=== PATIENT | female | born 1995 | race Caucasian/White ===

== ENCOUNTER 2019-08-16 02:32 | Emergency (ER) | payer OTHER, MEDICAID ==
[~2019-08-16] VITALS: Ht 170.2 cm; Wt 53.1 kg
[~2019-08-16 02:32] MED LIST: ACETAMINOPHEN-1 EAC1 PO; ASPIRIN325 PO; FLAGYL500 MG PO
[2019-08-16] MEDS ORDERED: NAPROSYN500 MG PO (04:03)
[2019-08-16 04:15] VITALS: BP 120/80
== END 2019-08-16 04:15 | disposition home or self-care (01) ==
LOC: M.ERS 02:32
DX: S61.511A Laceration without foreign body of right wrist, initial encounter (principal); W22.8XXA Striking against or struck by other objects, initial encounter; Y93.89 Activity, other specified; Y92.89 Other specified places as the place of occurrence of the external cause; Y99.8 Other external cause status